=== PATIENT | male | born 1935 | race Caucasian/White ===

== ENCOUNTER → 2016-10-15 | Outpatient (CLI) | payer MEDICARE, BC ==
[~2016-10-15] MED LIST: AMBIEN10 MG PO; AMITRIPTYLINE H50 M1 PO; ASPIRIN 32325 MG/TAB PO; ATENOLOL50 MG PO; CRESTOR20 MG PO; GEMFIBROZIL600 MG PO; IMDUR30 MG PO; IMODIUM 2MG CAPS2 MG PO; LIVALO2 MG PO; NITROSTAT0.4 MG/TAB SL; OMEGA-3 FISH1200 MG PO; OSTEO-BI-FLEX 21 TAB PO; PHENERGAN 25 TA25 MG PO; PLAVIX 75MG TAB75 MG PO; PRINIVIL2.5 MG PO; RANEXA 500MG T500 MG PO; TENORMIN 5050 MG/TAB PO
== END ==
LOC: COL.RAD 09:37
PROVIDERS: Urology
DX: C61 Malignant neoplasm of prostate (principal)
CPT/HCPCS: A9503; Q9967

== ENCOUNTER → 2018-01-22 | Outpatient (CLI) | payer MEDICARE, BC | LOC: COL.RAD 10:41 | DX: Z01.812 Encounter for preprocedural laboratory examination (principal); N32.89 Other specified disorders of bladder; K63.89 Other specified diseases of intestine; N28.1 Cyst of kidney, acquired; J84.10 Pulmonary fibrosis, unspecified; J98.4 Other disorders of lung | CPT/HCPCS: Q9967 ==